=== PATIENT | female | born 1945 | race Hispanic/Latino ===

== ENCOUNTER 2017-01-07 08:39 | Outpatient (CLI) | payer MEDICARE ==
[2017-01-07 12:15] LABS: Bilirubin Negative (Negative); Blood, Urine Negative (Negative); Clarity Clear (Clear); Glucose, Urine (Dipstick) Negative (Negative); Leukocyte Small (Negative); Nitrite Negative (Negative); Protein, Urine (Dipstick) Negative (Neg-Trace); Specific Gravity, Urine 1.015 (1.005-1.030); Urobilinogen 0.2 mg/dL (0.2-1.0); pH, Urine 6.5 (5.0-9.0)
[2017-01-07 12:18] LABS: #Basophils 0.1 thou/uL (0.0-0.2); #Eosinphils 0.2 thou/uL (0.0-0.7); #Lymphocytes 2.7 thou/uL (1.20-3.40); #Monocytes 0.4 thou/uL (0.11-0.59); #Neutrophils 3.5 thou/uL (1.40-6.50); %Basophils 1.1 % (0.0-1.0); %Eosinophils 3.4 % (0.0-10.0); %Lymphocytes 38.8 % (21.0-51.0); %Monocytes 5.6 % (0.0-10.0); %Neutrophils 51.1 % (42.0-75.0); Hemoglobin 13.3 g/dL (12.0-16.0); Mean Corpuscular HGB CONC 32.7 g/dL (32.0-36.0); Mean Corpuscular Hemoglobin 32.1 pg (27.0-31.0); Mean Platelet Volume 6.2 fL (7.4-10.4); Platelet Count 206 thou/uL (130-400); RBC Distribution Width 11.9 % (11.5-14.5); Red Blood Cell (RBC) Count 4.15 mill/uL (4.20-5.40); White Blood Cell (WBC) Count 6.8 thou/uL (4.8-10.8)
[2017-01-07 12:24] LABS: Bacteria/HPF Rare-Few HPF (None Seen); RBC/HPF None Seen HPF (0-3); WBC/HPF 0-3 HPF (0-3)
[2017-01-07 12:29] LABS: Hemoglobin A1c 5.3 % (4.0-6.0)
[2017-01-07 12:31] LABS: ALT (SGPT) 31 U/L (0-55); AST (SGOT) 24 U/L (5-34); Alkaline Phosphatase 126 U/L (40-150); Anion Gap 13 mmol/L (10-20); BUN (Urea Nitrogen) 24 mg/dL (9.8-20.1); Bilirubin, Direct 0.3 mg/dL (0.1-0.3); Bilirubin, Total 0.7 mg/dL (0.2-1.2); Calc. Creatinine Clearance 0 mL/min (70-130); Carbon Dioxide 24 mmol/L (23-31); Cardiac Risk 3.5 (Less than 4.5); Chloride 107 mmol/L (98-107); Cholesterol 117 mg/dL (< 200 Desired); Estimated GFR-MDRD 74; Glucose 95 mg/dL (80-115); HDL Cholesterol 33 mg/dL (>60 Neg Risk); LDL Cholesterol, Calculated 56 mg/dL; Potassium 4.3 mmol/L (3.5-5.1); Sodium 140 mmol/L (136-145); Triglycerides 141 mg/dL (Less than 150)
== END 2017-01-07 08:40 ==
LOC: NAVSJIPCSP 08:39
PROVIDERS: ATTEND Family Medicine
DX: E78.5 Hyperlipidemia, unspecified (principal); E03.9 Hypothyroidism, unspecified; D50.0 Iron deficiency anemia secondary to blood loss (chronic); I10 Essential (primary) hypertension; R35.0 Frequency of micturition; Z79.899 Other long term (current) drug therapy
CPT/HCPCS: 36415; 80048; 80061; 80076; 81003; 81015; 83036; 84443; 85025

== ENCOUNTER 2017-04-30 08:38 | Outpatient (CLI) | payer MEDICARE ==
[2017-04-30 10:51] LABS: Hemoglobin A1c 5.4 % (4.0-6.0)
[2017-04-30 12:04] LABS: Anion Gap 18 mmol/L (10-20); BUN (Urea Nitrogen) 21 mg/dL (9.8-20.1); Calc. Creatinine Clearance 0 mL/min (70-130); Calcium 9.1 mg/dL (7.8-10.44); Carbon Dioxide 19 mmol/L (23-31); Chloride 107 mmol/L (98-107); Estimated GFR-MDRD 83; Glucose 101 mg/dL (80-115); Potassium 4.3 mmol/L (3.5-5.1); Sodium 140 mmol/L (136-145)
[2017-04-30 13:45] LABS: ALT (SGPT) 32 U/L (8-55); AST (SGOT) 27 U/L (5-34); Alkaline Phosphatase 120 U/L (40-150); Bilirubin, Direct 0.3 mg/dL (0.1-0.3); Bilirubin, Total 0.8 mg/dL (0.2-1.2); Cardiac Risk 3.4 (Less than 4.5); Cholesterol 125 mg/dl (< 200 Desired); HDL Cholesterol 37 mg/dL (>60 Neg Risk); LDL Cholesterol, Calculated 67 mg/dL; Protein, Total 7.3 g/dL (6.0-8.3); Triglycerides 106 mg/dL (Less than 150)
[2017-04-30 19:21] LABS: #Basophils 0.1 thou/uL (0.0-0.2); #Eosinphils 0.4 thou/uL (0.0-0.7); #Lymphocytes 2.7 thou/uL (1.20-3.40); #Monocytes 0.4 thou/uL (0.11-0.59); #Neutrophils 3.9 thou/uL (1.40-6.50); %Basophils 0.7 % (0.0-1.0); %Eosinophils 5.4 % (0.0-10.0); %Lymphocytes 36.1 % (21.0-51.0); %Monocytes 5.8 % (0.0-10.0); Hemoglobin 13.5 g/dL (12.0-16.0); Mean Corpuscular HGB CONC 33.3 g/dL (32.0-36.0); Mean Corpuscular Hemoglobin 30.7 pg (27.0-31.0); Mean Corpuscular Volume 92.3 fl (81.0-99.0); Mean Platelet Volume 6.4 fL (7.4-10.4); Platelet Count 200 thou/uL (130-400); RBC Distribution Width 11.2 % (11.5-14.5); Red Blood Cell (RBC) Count 4.38 mill/uL (4.20-5.40); White Blood Cell (WBC) Count 7.4 thou/uL (4.8-10.8)
== END 2017-04-30 08:39 | disposition home or self-care (01) ==
LOC: NAVSJIPCSP 08:38 → NAV LAB 08:39
PROVIDERS: ATTEND Family Medicine
DX: E78.5 Hyperlipidemia, unspecified (principal); E03.9 Hypothyroidism, unspecified; D50.0 Iron deficiency anemia secondary to blood loss (chronic); I10 Essential (primary) hypertension; Z79.899 Other long term (current) drug therapy
CPT/HCPCS: 36415; 80048; 80061; 80076; 83036; 84443; 85025

== ENCOUNTER 2017-07-01 10:17 | Outpatient (CLI) | payer MEDICARE | END 2017-07-01 10:18 | disposition home or self-care (01) | LOC: NAVSJIPCSP 10:17 | DX: L02.91 Cutaneous abscess, unspecified (principal) | CPT/HCPCS: 87070; 87205 ==

== ENCOUNTER 2018-04-22 14:10 | Emergency (ER) | payer MEDICARE | END 2018-04-22 15:03 | disposition home or self-care (01) | LOC: NAV ERS 14:10 | DX: H01.006 Unspecified blepharitis left eye, unspecified eyelid (principal); D64.9 Anemia, unspecified; E78.5 Hyperlipidemia, unspecified; E03.9 Hypothyroidism, unspecified; I10 Essential (primary) hypertension; F32.9 Major depressive disorder, single episode, unspecified; G47.00 Insomnia, unspecified; Z79.899 Other long term (current) drug therapy | CPT/HCPCS: 99283 ==

== ENCOUNTER 2019-02-14 10:11 | Outpatient (CLI) | payer MEDICARE ==
--- NOTE | 2019-02-14 11:10 | CT ---
Temporal bone CT. HISTORY: Hearing loss. High-resolution axial images are obtained with coronal and sagittal reconstructions. The right and left external auditory canals are unremarkable. The right and left middle ears are well aerated. No evidence of masses or lesions seen in the right o r left little air. The middle ear ossicles are intact. The cochlea, vestibule and semicircular canals are intact. The course of the facial nerve bilaterally is unremarkable. The internal auditory canals bilaterally are unremarkable. The vestibular aqueducts are of normal size without evidence of significant enlargement. The mastoid air cells are well aerated. Paranasal sinuses are well aerated. IMPRESSION: Normal temporal bone CT.
== END 2019-02-14 10:12 | disposition home or self-care (01) ==
LOC: NAV CT 10:11
DX: H90.5 Unspecified sensorineural hearing loss (principal)
CPT/HCPCS: 70480

== ENCOUNTER 2021-03-31 09:36 | Outpatient (CLI) | payer MEDICARE | END 2021-03-31 09:37 | disposition home or self-care (01) | LOC: NAV RAD 09:36 | PROVIDERS: ATTEND Nurse Practitioner Adult Health | DX: M79.672 Pain in left foot (principal) ==

== ENCOUNTER 2022-12-07 16:48 | Emergency (ER) | payer MEDICARE ==
[2022-12-07 17:14] LABS: Bilirubin Negative (Negative); Blood, Urine Negative (Negative); Clarity Clear (Clear); Glucose, Urine (Dipstick) Negative (Negative); Ketone, Urine Negative (Negative); Leukocyte Small (Negative); Nitrite Negative (Negative); Protein, Urine (Dipstick) Negative (Neg-Trace); Urobilinogen 0.2 mg/dL (Less than 2)
[2022-12-07 17:16] LABS: Specific Gravity, Urine 1.007 (1.002-1.036)
[2022-12-07 17:19] LABS: Bacteria/HPF None Seen HPF (None Seen); RBC/HPF None Seen HPF (0-3); Squamous Epithelial 0-3 HPF (0-3); WBC/HPF 0-3 HPF (0-3)
[2022-12-07] MEDS ORDERED: Sodium Chloride 0.9% 1,000 ML ONE (17:25)
[2022-12-07] MEDS ORDERED: Ondansetron PF 4 MG/2 ML Vial ONE (17:25)
[2022-12-07] MEDS ORDERED: Ketorolac Tromethamine 30 MG/ML VIAL ONE (17:25)
[2022-12-07 17:34] LABS: #Basophils 0.1 thou/uL (0.0-0.2); #Eosinphils 0.1 thou/uL (0.0-0.7); #Lymphocytes 3.7 thou/uL (1.20-3.40); #Monocytes 0.5 thou/uL (0.11-0.59); #Neutrophils 4.3 thou/uL (1.40-6.50); %Basophils 1.3 % (0.0-1.0); %Eosinophils 1.3 % (0.0-10.0); %Lymphocytes 42.6 % (21.0-51.0); %Monocytes 5.3 % (0.0-10.0); %Neutrophils 49.5 % (42.0-75.0); Hemoglobin 12.8 g/dL (12.0-16.0); Mean Corpuscular HGB CONC 32.5 g/dL (32.0-36.0); Mean Corpuscular Hemoglobin 32.6 pg (27.0-31.0); Platelet Count 206 10x3/uL (130-400); RBC Distribution Width 11.8 % (11.5-14.5); Red Blood Cell (RBC) Count 3.93 mill/uL (4.20-5.40); White Blood Cell (WBC) Count 8.7 10x3/uL (4.8-10.8)
[2022-12-07 17:50] LABS: ALT (SGPT) 24 U/L (8-55); AST (SGOT) 19 U/L (5-34); Albumin 4.1 g/dL (3.4-4.8); Alkaline Phosphatase 81 U/L (40-110); Anion Gap 13 mmol/L (10-20); BUN (Urea Nitrogen) 12 mg/dL (9.8-20.1); Bilirubin, Total 0.8 mg/dL (0.2-1.2); Calc. Creatinine Clearance 0 mL/min (70-130); Calcium 9.4 mg/dL (7.8-10.44); Carbon Dioxide 25 mmol/L (23-31); Chloride 103 mmol/L (98-107); Estimated GFR 70; Globulin 2.8 g/dL (2.4-3.5); Glucose 100 mg/dL (83-110); Lipase 17 U/L (8-78); Magnesium 1.9 mg/dL (1.6-2.6); Potassium 3.4 mmol/L (3.5-5.1); Protein, Total 6.9 g/dL (5.8-8.1); Sodium 138 mmol/L (136-145)
[2022-12-07] MEDS ORDERED: Potassium Chloride 20 MEQ TAB ONE (18:12)
== END 2022-12-07 18:46 | disposition home or self-care (01) ==
LOC: NAV ERS 16:48
DX: S39.012A Strain of muscle, fascia and tendon of lower back, initial encounter (principal); D64.9 Anemia, unspecified; E78.00 Pure hypercholesterolemia, unspecified; K21.9 Gastro-esophageal reflux disease without esophagitis; E03.9 Hypothyroidism, unspecified; I10 Essential (primary) hypertension; G47.00 Insomnia, unspecified; X58.XXXA Exposure to other specified factors, initial encounter; Z79.899 Other long term (current) drug therapy
CPT/HCPCS: 36415; 74176; 80053; 81003; 81015; 83605; 83690; 83735; 85025; 96374; 96375; J1885; J2405; J7050

== ENCOUNTER 2024-11-09 16:21 | Emergency (ER) | payer MEDICARE ==
[2024-11-09] MEDS ORDERED: Acetaminophen 500 MG TAB ONE (16:54)
[2024-11-09] MEDS ORDERED: Oseltamivir 75 MG CAP ONE (18:01)
== END 2024-11-09 18:20 | disposition home or self-care (01) ==
LOC: NAV ERS 16:21
DX: J10.1 Influenza due to other identified influenza virus with other respiratory manifestations (principal); I10 Essential (primary) hypertension
CPT/HCPCS: 71046; 87428